=== PATIENT | male | born 1995 | race Hispanic/Latino ===

== ENCOUNTER 2018-03-20 23:59 | Emergency (ER) | payer SELFPAY ==
[2018-03-21] MEDS ORDERED: Lidocaine 1% w/Epinephrine 1:100K 20 ML VIAL ONE (00:25)
== END 2018-03-21 01:00 | disposition home or self-care (01) ==
LOC: ERS 23:59
DX: L02.212 Cutaneous abscess of back [any part, except buttock and flank] (principal)
CPT/HCPCS: 10061; J2001

== ENCOUNTER 2018-03-21 22:50 | Emergency (ER) | payer SELFPAY | END 2018-03-21 23:22 | disposition home or self-care (01) | LOC: ERS 22:50 | DX: Z48.01 Encounter for change or removal of surgical wound dressing (principal) | CPT/HCPCS: 99282 ==